=== PATIENT | female | born 1960 | race Caucasian/White ===

== ENCOUNTER → 2019-11-25 09:13 | Outpatient (BNVA) | payer MEDICARE, SELFPAY | PROVIDERS: Family Provider Family Medicine; Visit Provider Orthopaedic Surgery | DX: M17.11 Unilateral primary osteoarthritis, right knee (principal); M25.561 Pain in right knee; Z96.652 Presence of left artificial knee joint | CPT/HCPCS: 73560; 73565 ==

== ENCOUNTER → 2020-11-06 12:56 | Outpatient (BNVA) | payer MEDICARE, SELFPAY | PROVIDERS: Family Provider Family Medicine; PCP Family Medicine; Visit Provider Internal Medicine Rheumatology | DX: M05.79 Rheumatoid arthritis with rheumatoid factor of multiple sites without organ or systems involvement (principal); Z79.899 Other long term (current) drug therapy; Z11.1 Encounter for screening for respiratory tuberculosis; Z87.891 Personal history of nicotine dependence | CPT/HCPCS: 36415; 80076; 82565; 85025; 85651; 86140; 86480; 99214 ==